=== PATIENT | female | born 1960 | race Caucasian/White ===

== ENCOUNTER 2018-07-31 07:50 | Day surgery (SDC) | payer OTHER ==
[2018-07-31] MEDS ORDERED: PROPOFOL 40 ML (10:07)
== END 2018-07-31 11:37 | disposition home or self-care (01) ==
LOC: GIL 07:50
DX: Z12.11 Encounter for screening for malignant neoplasm of colon (principal); D12.5 Benign neoplasm of sigmoid colon; I10 Essential (primary) hypertension; E78.5 Hyperlipidemia, unspecified; E03.9 Hypothyroidism, unspecified; Z86.73 Personal history of transient ischemic attack (TIA), and cerebral infarction without residual deficits
CPT/HCPCS: 45380; 88305